=== PATIENT | male | born 1960 | race Caucasian/White ===

== ENCOUNTER 2020-11-22 23:04 | Emergency (ER) | payer OTHER ==
[2020-11-22 23:19] VITALS: BP 145/91
--- NOTE | 2020-11-23 00:01 | ED Physician Documentation ---
History of Present Illness - Stated complaint Stated Complaint: L LEG SWELLING - Chief complaint Chief Complaint: General - History obtained from History obtained from: Patient - History of Present Illness Timing: Today - Additonal information Additional information: 60-year-old previously well male with a history of type 2 diabetes has had his left hip total arthroplasty done at [facility] 1 week ago. Today he was on the commode when he noticed that his left leg was swollen in general and when he called the nurse hotline they asked him to come to the emergency department for further evaluation. The patient denies any specific symptomatology states that he feels quite well and has been up and around doing quite a bit with his walker and expects to see the physical therapist for the first time tomorrow. He denies any shortness of breath or chest pain associated with this denies any significant pain to his leg associated with this. Review of Systems Constitutional: denies: Fever Eyes: denies: Decreased vision Ears: denies: Ear pain Nose: denies: Rhinorrhea / runny nose, Congestion Throat: denies: Sore throat Cardiac: denies: Chest pain / pressure, Palpitations Respiratory: denies: Dyspnea, Cough GI: denies: Abdominal Pain, Nausea, Vomiting : denies: Dysuria, Frequency Skin: denies: Rash Musculoskeletal: reports: Extremity swelling. denies: Neck pain, Back pain, Extremity pain, Joint swelling, Pain with weight bearing Neurologic: denies: Generalized weakness, Focal weakness, Numbness PD PAST MEDICAL HISTORY - Past Medical History Past Medical History: Yes Musculoskeletal: Osteoarthritis - Past Surgical History Ortho: Hip replacement - Present Medications Home Medications: Ambulatory Orders Medication Instructions Recorded Confirmed Acetaminophen [Tylenol] 1,000 mg PO TID 11/22/20 11/22/20 Aspirin [Aspirin EC] 81 mg PO DAILY 11/22/20 11/22/20 Celecoxib [CeleBREX] 100 mg PO BID 11/22/20 11/22/20 Pantoprazole [Protonix] 11/22/20 oxyCODONE [Roxicodone] 5 mg PO QID 11/22/20 11/22/20 - Allergies Allergies/Adverse Reactions: Allergies Allergy/AdvReac Type Severity Reaction Status Date / Time No Known Drug Allergies Allergy Verified 11/22/20 23:29 - Social History Does the pt smoke?: No Smoking Status: Never smoker Does the pt drink ETOH?: No Does the pt have substance abuse?: No PD ED PE NORMAL - Vitals Vital signs reviewed: Yes (hypertensive ) - General General: Alert and oriented X 3, No acute distress, Well developed/nourished - HEENT HEENT: Atraumatic, PERRL, EOMI - Neck Neck: Supple, no meningeal sign, No bony TTP - Cardiac Cardiac: RRR, No murmur - Respiratory Respiratory: No respiratory distress, Clear bilaterally - Abdomen Abdomen: Normal bowel sounds, Soft, Non tender, Non distended, No organomegaly - Back Back: No CVA TTP, No spinal TTP - Derm Derm: Normal color, Warm and dry, No rash - Extremities Extremities: No deformity, Other (There is swelling to the left leg in general. There is swelling from the foot to the hip and there is no evidence of inflamation to the surgical site. 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, No motor deficit, No sensory deficit, Normal speech Eye Opening: Spontaneous Motor: Obeys Commands Verbal: Oriented GCS Score: 15 - Psych Psych: Normal mood, Normal affect Results - Vitals Vitals: Vital Signs - 24 hr 11/22/20 11/22/20 23:14 23:40 Temperature 36.2 C L Heart Rate 93 93 Respiratory 19 19 Rate Blood Pressure 145/91 H 145/91 H O2 Saturation 97 97 Oxygen O2 Source Room air - Rads (name of study) venous duplex L Radiology: Prelim report reviewed (Impression: No deep vein thrombosis.), EMP read indepedently, See rad report PD MEDICAL DECISION MAKING - ED course Complexity details: reviewed old records, reviewed results, re-evaluated patie nt, considered differential, d/w patient ED course: 60 y/o male with recent total hip and swelling to the LLE does not have DVT on ultrasound exam of the LE. He has some dependant edema and he is not wearing his compression stockings. We will encourage him to wear the compression stockings and continue with the planned physical therapy. Departure - Departure Disposition: 01 Home, Self Care Clinical Impression: Dependent edema Condition: Stable Instructions: ED Leg Swelling Unilateral Follow-Up: Your, doctor [Other] Comments: Today we did not find any evidence of a deep vein thrombosis in the left lower extremity. The swelling is likely related to dependent edema and the recent surgery to the left leg. The recommendation is to wear your compression stocking during the day and to continue physical activity. Discharge Date/Time: 11/23/20 01:21
--- NOTE | 2020-11-23 08:41 | Ultrasound Report ---
PROCEDURE: Duplex Ext Veins Left INDICATIONS: post op swelling TECHNIQUE: Real-time imaging, as well as color and pulse Doppler interrogation, were performed of the lower extr emity deep veins from the inguinal ligament to the popliteal fossa. COMPARISON: None. FINDINGS: The deep veins are normally compressible, and free of intraluminal thrombus. Color and pu lse Doppler demonstrate normal phasic intraluminal flow. There is normal augmentation response to di stal compression maneuver. IMPRESSION: No deep venous thrombosis. Reviewed by: Lissette Agrawal MD on 11/23/2020 8:40 AM [facility] Approved by: Lissette Agrawal MD on 11/23/2020 8:40 AM PST Station ID: [id number]
== END 2020-11-23 01:21 | disposition home or self-care (01) ==
LOC: ED 23:04
DX: R60.0 Localized edema (principal); Z98.890 Other specified postprocedural states; Z96.642 Presence of left artificial hip joint; E11.9 Type 2 diabetes mellitus without complications; Z79.82 Long term (current) use of aspirin
CPT/HCPCS: 99284

== ENCOUNTER 2021-02-23 20:54 | Emergency (ER) | payer OTHER ==
--- NOTE | 2021-02-23 21:32 | ED Physician Documentation ---
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 Feels like it got stuck midline mid/lower chest. He initially couldn't tolerate any PO including liquids, but gradually has been able to tolerate increasing amounts of liquids as long as he doesn't drink too much at once. He denies having any pain at any time. He has had similar symptom in the past but never had to have this evaluated, as the sensation would pass on its own (has never lasted this long) Review of Systems Respiratory: reports: Reviewed and negative GI: reports: Reviewed and negative PD PAST MEDICAL HISTORY - Past Medical History Past Medical History: Yes Cardiovascular: Hypertension, High cholesterol Endocrine/Autoimmune: Type 2 diabetes Musculoskeletal: Osteoarthritis - Past Surgical History Past Surgical History: Yes Ortho: Hip replacement - Present Medications Home Medications: Ambulatory Orders Medication Instructions Recorded Confirmed Insulin NPH Human [Humulin N] 16 - 36 unit BID 02/23/21 02/23/21 Lisinopril [Zestril] 20 mg PO DAILY 02/23/21 02/23/21 Rosuvastatin Calcium [Ezallor 10 mg PO DAILY 02/23/21 02/23/21 Sprinkle] metFORMIN [Glucophage] 1,000 mg PO BID 02/23/21 02/23/21 - Allergies Allergies/Adverse Reactions: Allergies Allergy/AdvReac Type Severity Reaction Status Date / Time No Known Drug Allergies Allergy Verified 11/22/20 23:29 - Social History Does the pt smoke?: No Smoking Status: Never smoker Does the pt drink ETOH?: No Does the pt have substance abuse?: No - Immunizations Immunizations are current?: Yes PD ED PE NORMAL - Vitals Vital signs reviewed: Yes - General General: Alert and oriented X 3, No acute distress, Well developed/nourished - Neck Neck: Supple, no meningeal sign - Cardiac Cardiac: RRR, No murmur - Respiratory Respiratory: No respiratory distress, Clear bilaterally - Abdomen Abdomen: Soft, Non tender Results - Vitals Vitals: Vital Signs - 24 hr 02/23/21 02/23/21 02/23/21 20:58 21:12 22:23 Temperature 36.1 C L 36.1 C L 36.1 C L Heart Rate 76 76 72 Respiratory 18 19 18 Rate Blood Pressure 150/77 H 150/77 H 144/71 H O2 Saturation 99 99 99 Oxygen O2 Source Room air PD MEDICAL DECISION MAKING - ED course Complexity details: considered differential, d/w patient ED course: patient presents with sensation of food bolus stuck in esophagus; was eating chicken and shortly after swallowing a piece, he felt as though it became stuck mid/lower midline chest. I offered option of IV glucagon, explaining why this is used for this situation. He says he already has been feeling much improved and instead would like to try drinking liquids. He was able to tolerate the PO liquids and prefers to be discharged at this time, will return if worse, follow up with PMD if symptoms have not completely resolved by Thursday. Departure - Departure Disposition: 01 Home, Self Care Clinical Impression: Foreign body in esophagus Condition: Good Instructions: ED Foreign Body Esophageal Rslv Follow-Up: LOC NIEVES PA [Primary Care Provider] - Discharge Date/Time: 02/23/21 22:23
[2021-02-23 22:24] VITALS: BP 144/71
== END 2021-02-23 22:23 | disposition home or self-care (01) ==
LOC: ED 20:54 → SUPCPDRO 20:54 → ED 22:23
DX: T18.128A Food in esophagus causing other injury, initial encounter (principal); X58.XXXA Exposure to other specified factors, initial encounter; I10 Essential (primary) hypertension; E11.9 Type 2 diabetes mellitus without complications; Z79.4 Long term (current) use of insulin
CPT/HCPCS: 99281; 99283

== ENCOUNTER 2021-03-28 14:09 | Outpatient (CLI) | payer OTHER ==
[2021-03-28 20:29] LABS: ALBUMIN 4.6 g/dL (3.2-5.5); ALBUMIN/GLOBULIN RATIO 1.8 (1.0-2.2); BILIRUBIN,TOTAL 1.8 mg/dL (0.2-1.0); CALCIUM 9.2 mg/dL (8.5-10.3); CREATININE 0.9 mg/dL (0.6-1.2); POTASSIUM 4.5 mmol/L (3.5-5.0); TOTAL PROTEIN 7.1 g/dL (6.7-8.2)
[2021-03-28 20:42] LABS: ESTIMATED AVERAGE GLUCOSE 177 mg/dL (70-100); HEMOGLOBIN A1c% 7.8 % (4.27-6.07)
[2021-03-28 20:53] LABS: CREATININE,URINE 78.4 mg/dL; MICROALBUM/CREATININE RATIO,UR 8.9 ug/mg (<30.0); MICROALBUMIN,URINE 0.7 mg/dL (0-300.0)
== END 2021-03-28 14:10 | disposition home or self-care (01) ==
LOC: LAB.S 14:09
PROVIDERS: ATTEND Physician Assistant
DX: E11.9 Type 2 diabetes mellitus without complications (principal)
CPT/HCPCS: 36415; 80053; 82043; 82570; 83036

== ENCOUNTER 2021-04-23 16:12 | Outpatient (CLI) | payer OTHER ==
[2021-04-23 20:03] LABS: BASOPHILS % (AUTO) 0.6 %; EOSINOPHILS # (AUTO) 0.2 10^3/uL (0.0-0.7); EOSINOPHILS % (AUTO) 2.4 %; HCT - HEMATOCRIT 44.4 % (42.0-52.0); HGB - HEMOGLOBIN 14.8 g/dL (14.0-18.0); LYMPHOCYTES # (AUTO) 1.5 10^3/uL (1.5-3.5); LYMPHOCYTES % (AUTO) 23.1 %; MEAN CORPUSCULAR HEMOGLOBIN 30.7 pg (27.0-31.0); MEAN CORPUSCULAR HGB CONC 33.3 g/dL (32.0-36.0); MEAN CORPUSCULAR VOLUME 92.1 fL (80.0-94.0); MEAN PLATELET VOLUME 10.8 fL (7.4-11.4); MONOCYTES # (AUTO) 0.5 10^3/uL (0.0-1.0); MONOCYTES % (AUTO) 7.7 %; NEUTROPHILS # (AUTO) 4.2 10^3/uL (1.5-6.6); NEUTROPHILS % (AUTO) 65.9 %; PLT - PLATELET COUNT 251 10^3/uL (130-450); RED BLOOD COUNT 4.82 10^6/uL (4.70-6.10); RED CELL DISTRIBUTION WIDTH 14.5 % (12.0-15.0); WHITE BLOOD COUNT 6.4 x10^3/uL (4.8-10.8)
[2021-04-23 20:29] LABS: ALBUMIN 4.4 g/dL (3.2-5.5); ALBUMIN/GLOBULIN RATIO 1.8 (1.0-2.2); BILIRUBIN,TOTAL 1.6 mg/dL (0.2-1.0); CALCIUM 9.1 mg/dL (8.5-10.3); POTASSIUM 4.2 mmol/L (3.5-5.0); TOTAL PROTEIN 6.9 g/dL (6.7-8.2)
== END 2021-04-23 16:13 | disposition home or self-care (01) ==
LOC: LAB.S 16:12
PROVIDERS: ATTEND Physician Assistant
DX: D50.9 Iron deficiency anemia, unspecified (principal); E11.9 Type 2 diabetes mellitus without complications; C18.9 Malignant neoplasm of colon, unspecified
CPT/HCPCS: 36415; 80053; 82378; 82728; 83036; 83540; 84466; 85025

== ENCOUNTER 2021-12-09 10:48 | Outpatient (CLI) | payer OTHER ==
[2021-12-09] MEDS ORDERED: IOVERSOL 320 50 ML VIAL ONE (11:04)
[2021-12-09] MEDS ORDERED: IOVERSOL 320 100 ML VIAL IVP ONE (11:04)
[2021-12-09 11:12] LABS: BASOPHILS % (AUTO) 0.5 %; EOSINOPHILS # (AUTO) 0.2 10^3/uL (0.0-0.7); EOSINOPHILS % (AUTO) 2.9 %; HCT - HEMATOCRIT 46.5 % (42.0-52.0); HGB - HEMOGLOBIN 15.5 g/dL (14.0-18.0); LYMPHOCYTES # (AUTO) 1.1 10^3/uL (1.5-3.5); LYMPHOCYTES % (AUTO) 17.8 %; MEAN CORPUSCULAR HEMOGLOBIN 29.9 pg (27.0-31.0); MEAN CORPUSCULAR HGB CONC 33.3 g/dL (32.0-36.0); MEAN CORPUSCULAR VOLUME 89.8 fL (80.0-94.0); MEAN PLATELET VOLUME 9.6 fL (7.4-11.4); MONOCYTES # (AUTO) 0.4 10^3/uL (0.0-1.0); MONOCYTES % (AUTO) 6.5 %; NEUTROPHILS # (AUTO) 4.5 10^3/uL (1.5-6.6); PLT - PLATELET COUNT 246 10^3/uL (130-450); RED BLOOD COUNT 5.18 10^6/uL (4.70-6.10); RED CELL DISTRIBUTION WIDTH 14.8 % (12.0-15.0); WHITE BLOOD COUNT 6.2 x10^3/uL (4.8-10.8)
[2021-12-09 11:29] LABS: ALBUMIN 4.2 g/dL (3.2-5.5); ALBUMIN/GLOBULIN RATIO 1.4 (1.0-2.2); BILIRUBIN,TOTAL 1.2 mg/dL (0.2-1.0); CALCIUM 9.7 mg/dL (8.5-10.3); CREATININE 0.9 mg/dL (0.6-1.2); POTASSIUM 4.4 mmol/L (3.5-5.0); TOTAL PROTEIN 7.1 g/dL (6.7-8.2)
[2021-12-09] MEDS: IOVERSOL 320 100 ML VIAL IVP ONE (12:16)
[2021-12-09] MEDS: IOVERSOL 320 50 ML VIAL PO ONE (12:16)
--- NOTE | 2021-12-09 15:54 | CT Report ---
PROCEDURE: Abdomen/Pelvis W INDICATIONS: COLON CA CONTRAST: IV CONTRAST: Optiray 320 ml: 100 PO CONTRAST: Optiray 320 ml50 TECHNIQUE: After the administration of oral and intravenous contrast, 5 mm thick sections acquired from the diap hragms to the symphysis. 5 mm thick coronal and sagittal reformats were acquired. For radiation dos e reduction, the following was used: automated exposure control, adjustment of mA and/or kV accordin g to patient size. COMPARISON: CT abdomen/pelvis 08/21/2021 FINDINGS: Image quality: Excellent. ABDOMEN: Lung bases: Lung bases are clear. Heart size is normal. Solid organs: Liver and spleen are normal in size and enhancement. Gallbladder is unremarkable. Bi liary system is non dilated. Pancreas enhances normally. No adrenal nodules. Stable scarring at the superior pole of the right kidney. Bilateral simple renal cysts are again seen. No hydronephrosis. Peritoneum and bowel: Postsurgical changes are seen from partial bowel resection with anastomosis in the central abdomen. No signs of bowel obstruction. No recurrent pelvic mass identified. No free flui d or air. Nodes and vessels: No retroperitoneal or mesenteric adenopathy by size criteria. Aorta and inferior vena cava are normal in size. Mild aortic atherosclerotic calcifications. Miscellaneous: No ventral hernias. PELVIS: Genitourinary: Bladder wall thickness is normal. Miscellaneous: No inguinal hernias or adenopathy. Bones: Left hip arthroplasty redemonstrated. Degenerative changes are seen in the included spine aileen t are worst at the L5-S1 level. There is grade 1 anterolisthesis of L4 on L5. No suspicious bony lesi ons. No vertebral body compression fractures. IMPRESSION: 1.Postsurgical changes from partial colectomy with anastomosis in the central abdomen. No recurrent m ass. No signs of bowel obstruction. 2.No CT evidence of metastatic disease in the abdomen or pelvis. Reviewed by: Yamil Andrews MD on 12/09/2021 3:53 PM PDT Approved by: Yamil Andrews MD on 12/09/2021 3:53 PM PDT Station ID: [id number]
--- NOTE | 2021-12-09 15:55 | CT Report ---
PROCEDURE: CHEST W INDICATIONS: COLON CA CONTRAST: IV CONTRAST: Optiray 320 ml: 100 PO CONTRAST: Optiray 320 ml50 TECHNIQUE: After the administration of intravenous contrast, 1 mm axial images were acquired from the pulmonary apices through the posterior costophrenic angles. Axial 5 mm soft tissue kernel reconstructions were performed as well as 8 mm axial MIP and coronal and sagittal 5 mm reformations. For radiation dose reduction, the following was used: automated exposure control, adjustment of mA and/or kV according to patient size. COMPARISON: CT chest 08/21/2021. FINDINGS: Image quality: Excellent. Lungs and pleura: No acute air space opacities. No pleural effusions or pneumothorax. Central and peripheral airways are patent and normal in caliber. Mediastinum: Heart size is normal. No pericardial effusion. Coronary artery calcifications are pre sent. No mediastinal or hilar adenopathy by size criteria. Thoracic aorta and central pulmonary berta elvira are normal in size. Esophagus is normal in caliber. No hiatal hernia. Bones and chest wall: 1.6 cm hypoattenuating nodule again seen in the left anterior chest abutting t he skin surface, again most likely a sebaceous cyst. A healed right-sided rib fractures. No suspiciou s bony lesions. No vertebral body compression fractures. No axillary or supraclavicular adenopathy by size criteria. The thyroid is normal in size. Abdomen: Stable scarring at the superior pole of the right kidney. Please see the dedicated CT of [facility] abdomen and pelvis performed at the same time for detailed intra-abdominal findings. IMPRESSION: No CT evidence of metastatic disease in the chest. Reviewed by: Yamil Andrews MD on 12/09/2021 3:53 PM PDT Approved by: Yamil Andrews MD on 12/09/2021 3:53 PM PDT Station ID: [id number]
== END 2021-12-09 10:49 | disposition home or self-care (01) ==
LOC: LAB 10:48 → DI 10:49
PROVIDERS: ATTEND Internal Medicine
DX: C18.4 Malignant neoplasm of transverse colon (principal); C18.9 Malignant neoplasm of colon, unspecified; Z90.49 Acquired absence of other specified parts of digestive tract; Z98.0 Intestinal bypass and anastomosis status
CPT/HCPCS: 36415; 71260; 74177; 80053; 82378; 82728; 83540; 84466; 85025; Q9967

== ENCOUNTER 2022-01-13 14:08 | Outpatient (CLI) | payer OTHER ==
[2022-01-13 14:53] LABS: GAMMA GLUTAMYL TRANSPEPTIDASE 10 IU/L (8-55)
[2022-01-13 15:03] LABS: CRP - C-REACTIVE PROTEIN < 1.0 mg/dL (0-1.0)
[2022-01-13 20:42] LABS: ESTIMATED AVERAGE GLUCOSE 146 mg/dL (70-100); HEMOGLOBIN A1c% 6.7 % (4.27-6.07)
== END 2022-01-13 14:09 | disposition home or self-care (01) ==
LOC: LAB 14:08
PROVIDERS: ATTEND Naturopath
DX: C18.9 Malignant neoplasm of colon, unspecified (principal); E11.9 Type 2 diabetes mellitus without complications; Z86.39 Personal history of other endocrine, nutritional and metabolic disease; E83.51 Hypocalcemia; R97.20 Elevated prostate specific antigen [PSA]
CPT/HCPCS: 36415; 82306; 82390; 82525; 82977; 83036; 83090; 84153; 84630; 85384; 85651; 86140

== ENCOUNTER 2022-01-14 14:02 | Outpatient (CLI) | payer OTHER ==
[2022-01-15 08:11] LABS: CERULOPLASMIN 18.6 mg/dL (16.0-31.0); VITAMIN D 25-HYDROXY 25.3 ng/mL (30.0-100.0)
== END 2022-01-14 23:59 | disposition home or self-care (01) ==
LOC: LAB 14:02
PROVIDERS: ATTEND Naturopath
DX: C18.9 Malignant neoplasm of colon, unspecified (principal); E11.9 Type 2 diabetes mellitus without complications; Z86.39 Personal history of other endocrine, nutritional and metabolic disease; E83.51 Hypocalcemia; R97.20 Elevated prostate specific antigen [PSA]
CPT/HCPCS: 36415; 82306; 82390; 82525; 83090; 84630; 85384

== ENCOUNTER 2022-01-23 00:53 | Observation (INO) | payer OTHER ==
[2022-01-23 01:20] LABS: BASOPHILS # (AUTO) 0.1 10^3/uL (0.0-0.1); BASOPHILS % (AUTO) 0.5 %; EOSINOPHILS # (AUTO) 0.1 10^3/uL (0.0-0.7); EOSINOPHILS % (AUTO) 1.5 %; HCT - HEMATOCRIT 46.7 % (42.0-52.0); HGB - HEMOGLOBIN 15.9 g/dL (14.0-18.0); LYMPHOCYTES # (AUTO) 1.1 10^3/uL (1.5-3.5); LYMPHOCYTES % (AUTO) 12.1 %; MEAN CORPUSCULAR HEMOGLOBIN 30.7 pg (27.0-31.0); MEAN CORPUSCULAR VOLUME 90.2 fL (80.0-94.0); MEAN PLATELET VOLUME 9.7 fL (7.4-11.4); MONOCYTES # (AUTO) 0.4 10^3/uL (0.0-1.0); MONOCYTES % (AUTO) 4.6 %; NEUTROPHILS # (AUTO) 7.5 10^3/uL (1.5-6.6); NEUTROPHILS % (AUTO) 81.1 %; PLT - PLATELET COUNT 228 10^3/uL (130-450); RED BLOOD COUNT 5.18 10^6/uL (4.70-6.10); RED CELL DISTRIBUTION WIDTH 15.8 % (12.0-15.0); WHITE BLOOD COUNT 9.2 x10^3/uL (4.8-10.8)
[2022-01-23 01:32] LABS: ALBUMIN 4.6 g/dL (3.2-5.5); ALBUMIN/GLOBULIN RATIO 1.7 (1.0-2.2); BILIRUBIN,TOTAL 1.3 mg/dL (0.2-1.0); CALCIUM 9.6 mg/dL (8.5-10.3); CREATININE 1.1 mg/dL (0.6-1.2); POTASSIUM 4.2 mmol/L (3.5-5.0); TOTAL PROTEIN 7.3 g/dL (6.7-8.2)
[2022-01-23] MEDS ORDERED: ONDANSETRON 4 MG/2 ML VIAL IVP STA (01:42)
[2022-01-23] MEDS ORDERED: MORPHINE 2 MG/ML CARPUJECT IVP STA (01:42)
[2022-01-23] MEDS ORDERED: SODIUM CHLORIDE 0.9% 1,000 ML IV STA (01:42)
[2022-01-23] MEDS ORDERED: IOPAMIDOL-300 100 ML VIAL ONE (02:01)
[2022-01-23] MEDS ORDERED: IOPAMIDOL-300 100 ML VIAL IVP ONE (02:47)
[2022-01-23 03:32] LABS: BILIRUBIN,URINE NEGATIVE (NEGATIVE); CLARITY,URINE CLEAR (CLEAR); GLUCOSE, URINE (UA) NEGATIVE (NEGATIVE); KETONES,URINE (UA) 15 mg/dL (NEGATIVE); LEUKOCYTE ESTERASE, URINE NEGATIVE (NEGATIVE); NITRITE,URINE NEGATIVE (NEGATIVE); OCCULT BLOOD,URINE NEGATIVE (NEGATIVE); PH,URINE 5.5 PH (5.0-7.5); PROTEIN,URINE NEGATIVE (NEGATIVE); UROBILINOGEN,URINE 0.2 (NORMAL) E.U./dL (NORMAL)
[2022-01-23] MEDS ORDERED: ONDANSETRON ODT 4 MG TABLET TL PRN (03:57)
[2022-01-23] MEDS ORDERED: SODIUM CHLORIDE FLUSH 0.9% 10 ML SYRINGE IVP PRN (03:57)
[2022-01-23] MEDS ORDERED: ONDANSETRON 4 MG/2 ML VIAL IVP PRN (03:57)
[2022-01-23] MEDS ORDERED: ACETAMINOPHEN 325 MG TABLET PO PRN (03:57)
--- NOTE | 2022-01-23 03:57 | ED Physician Documentation ---
PD HPI ABD PAIN - Stated complaint Stated Complaint: UPPER ABD PX/VOMITING - Chief complaint Chief Complaint: Abd Pain - History obtained from History obtained from: Patient - Additional information Additional information: Patient is a 61-year-old male with a history significant for colon cancer status postresection, diabetes and hypertension presenting for evaluation of upper abdominal pain, vomiting which started at 9 PM. Patient started having sharp epigastric pain with episodes of emesis consisting of food. Emesis is nonbloody and nonbilious. Pain does not radiate. Nothing makes it better or worse. His last abdominal surgery was in September of this year - Colon resection.He denies recent illness. No fever, chest pain, difficulty breathing, diarrhea. He last had a bowel movement this morning. Review of Systems Constitutional: denies: Fever Nose: denies: Congestion Throat: denies: Sore throat Cardiac: denies: Chest pain / pressure Respiratory: denies: Dyspnea, Cough GI: reports: Abdominal Pain, Nausea, Vomiting. denies: Constipation, Diarrhea : denies: Dysuria Skin: denies: Rash Musculoskeletal: denies: Back pain Neurologic: denies: Headache PD PAST MEDICAL HISTORY - Past Medical History Past Medical History: Yes Cardiovascular: Hypertension, High cholesterol Endocrine/Autoimmune: Type 2 diabetes GI: Other Musculoskeletal: Osteoarthritis Other Past Medical History: Colon CA - Past Surgical History Past Surgical History: Yes General: Other Ortho: Hip replacement - Present Medications Home Medications: Ambulatory Orders Medication Instructions Recorded Confirmed Lisinopril [Zestril] 20 mg PO DAILY 02/23/21 01/23/22 Rosuvastatin Calcium [Ezallor 10 mg PO DAILY 02/23/21 01/23/22 Sprinkle] metFORMIN [Glucophage] 1,000 mg PO BID 02/23/21 01/23/22 Fluconazole 150 mg PO UD 06/26/21 01/23/22 Insulin Degludec [Tresiba] 18 unit SUBQ DAILY PM 06/26/21 01/23/22 Insulin Lispro [Humalog] 8 unit SUBQ TID 11/06/21 01/23/22 - Allergies Allergies/Adverse Reactions: Allergies Allergy/AdvReac Type Severity Reaction Status Date / Time No Known Drug Allergies Allergy Verified 01/23/22 01:01 - Social History Does the pt smoke?: No Smoking Status: Never smoker Does the pt drink ETOH?: No Does the pt have substance abuse?: No - Immunizations Immunizations are current?: Yes - POLST Patient has POLST: No PD ED PE NORMAL - General General: Alert and oriented X 3, No acute distress, Well developed/nourished - HEENT HEENT: Atraumatic, Moist mucous membranes - Neck Neck: Supple, no meningeal sign - Cardiac Cardiac: RRR, No murmur, Strong equal pulses - Respiratory Respiratory: No respiratory distress, Clear bilaterally - Abdomen Abdomen: Soft, Non distended, Other (Epigastric tenderness, no rebound no guarding, hypoactive bowel sounds). No: Normal bowel sounds - Back Back: No CVA TTP - Derm Derm: Warm and dry - Extremities Extremities: No edema - Neuro Neuro: Normal speech - Psych Psych: Normal mood Results - Vitals Vitals: Vital Signs - 24 hr 01/23/22 01/23/22 01/23/22 00:58 01:27 02:09 Temperature 36.6 C Heart Rate 76 93 63 Respiratory 16 20 17 Rate Blood Pressure 146/88 H 166/78 H 162/87 H O2 Saturation 97 98 99 01/23/22 01/23/22 03:16 03:43 Temperature Heart Rate 66 66 Respiratory 15 16 Rate Blood Pressure 157/76 H 156/77 H O2 Saturation 96 97 Oxygen O2 Source Room air - EKG (time done) 0112 Rate: Rate (enter#) (69) Rhythm: NSR Ischemia: T wave inversion. No: ST elevation c/w ischemia - Labs Labs: Laboratory Tests 01/23/22 01/23/22 01/23/22 01:15 01:15 01:15 WBC 9.2 RBC 5.18 Hgb 15.9 Hct 46.7 MCV 90.2 MCH 30.7 MCHC 34.0 RDW 15.8 H Plt Count 228 MPV 9.7 Neut # (Auto) 7.5 H Lymph # (Auto) 1.1 L [place] # (Auto) 0.4 Eos # (Auto) 0.1 Baso # (Auto) 0.1 Absolute Nucleated RBC 0.00 Nucleated RBC % 0.0 Sodium 134 L Potassium 4.2 Chloride 97 L Carbon Dioxide 27 Anion Gap 10.0 BUN 19 Creatinine 1.1 Estimated GFR (MDRD) 68 L Glucose 151 H Calcium 9.6 Total Bilirubin 1.3 H AST 23 ALT 28 Alkaline Phosphatase 74 Troponin I High Sens 6.8 Total Protein 7.3 Albumin 4.6 Globulin 2.7 Albumin/Globulin Ratio 1.7 Lipase 30 Urine Color Urine Clarity Urine pH Ur Specific Bul[place] Urine Protein Urine Glucose (UA) Urine Ketones Urine Occult Blood Urine Nitrite Urine Bilirubin Urine Urobilinogen Ur Leukocyte Esterase Ur Microscopic Review Urine Culture Comments SARS-CoV-2 (PCR) 01/23/22 01/23/22 03:25 03:55 WBC RBC Hgb Hct MCV MCH MCHC RDW Plt Count MPV Neut # (Auto) Lymph # (Auto) [place] # (Auto) Eos # (Auto) Baso # (Auto) Absolute Nucleated RBC Nucleated RBC % Sodium Potassium Chloride Carbon Dioxide Anion Gap BUN Creatinine Estimated GFR (MDRD) Glucose Calcium Total Bilirubin AST ALT Alkaline Phosphatase Troponin I High Sens Total Protein Albumin Globulin Albumin/Globulin Ratio Lipase Urine Color YELLOW Urine Clarity CLEAR Urine pH 5.5 Ur Specific [place] 1.020 Urine Protein NEGATIVE Urine Glucose (UA) NEGATIVE Urine Ketones 15 H Urine Occult Blood NEGATIVE Urine Nitrite NEGATIVE Urine Bilirubin NEGATIVE Urine Urobilinogen 0.2 (NORMAL) Ur Leukocyte Esterase NEGATIVE Ur Microscopic Review NOT INDICATED Urine Culture Comments NOT INDICATED SARS-CoV-2 (PCR) NOT DETECTED PD MEDICAL DECISION MAKING - ED course Complexity details: reviewed results, d/w patient, d/w family ED course: Patient with upper abdominal pain, vomiting. Vitals and labs are reassuring. CT scan demonstrating small bowel obstruction. Nausea and vomiting has improved after Zofran. Will hold on NG tube at this time. General surgery consulted and patient to be admitted to the hospitalist service. 034 - D/W Dr. Jackson, Will consult 0650 - D/W Dr. Cohen, will see pt. Departure - Departure Disposition: ED Place in Observation Clinical Impression: Small bowel obstruction Condition: Stable Discharge Date/Time: 01/23/22 04:50
[2022-01-23] MEDS: INSULIN REGULAR HUMAN 300 UNIT/3 ML VIAL SUBQ SCH ×3 (05:22→18:43)
[2022-01-23] MEDS: MORPHINE 2 MG/ML CARPUJECT IVP PRN ×3 (05:28→15:36)
[2022-01-23] MEDS: LACTATED RINGERS 1,000 ML IV SCH ×2 (05:35→15:36)
--- NOTE | 2022-01-23 07:34 | HISTORY & PHYSICAL EXAMINATION ---
Chief Complaint - Chief Complaint Chief Complaint: Abdominal pain History of Present Illness - Admitted From Admitted From:: Home - History Obtained From Records Reviewed: [facility] History obtained from: Patient, [employer], EMR - History of Present Illness HPI Comment/Other: This is a 61-year-old male with a past medical history significant for insulin- dependent diabetes mellitus, colon cancer status postresection who presents complaining of abdominal pain. He states his symptoms began yesterday evening at around 7 PM when he felt nauseous and had episode of emesis after eating carrots and some nuts. His pain then returned a few hours later and he had another episode of emesis and so he came to the emergency department. He states he was feeling well earlier on in the day and tolerated his meals without difficulty. He has not had similar symptoms in the past. He does report a history of colon cancer which was first diagnosed in August 2019. He underwent a resection at that time and he did not require chemotherapy or radiation. He reports that he had a colonoscopy a few months ago which showed recurrence of the cancer and so he underwent another resection at [facility] in October of this year. He reports he has done well since then. He denies any fevers, chills. The pain is predominantly epigastric region and is nonradiating. It was initially an 8 out of 10 but is now about a 5 out of 10 after receiving morphine. He no longer feels nauseous. His last bowel movement was yesterday morning. He has not had flatus since admission. CT in the emergency department was consistent with a bowel obstruction. Given this, medicine was consulted for admission. History - Past Medical History Cardiovascular: reports: Hypertension, High cholesterol Endocrine/Autoimmune: reports: Type 2 diabetes GI: reports: Other (Colon cancer status post right hemicolectomy) Musculoskeletal: reports: Osteoarthritis MRSA Hx?: No Other Past Medical History: Colon CA - Past Surgical History General: reports: Bowel surgery (Right hemicolectomy), Colonoscopy Ortho: reports: Hip replacement - Family & Social History Family History Comment/Other: He reports his father had a history of heart disease, prostate cancer. His mother has a history of breast cancer. Living arrangement: At home Living Situation: With spouse/s.o. Social History Notes: He lives at home with his . He is a non-smoker. He does drink 3 to 4 glasses of wine a week. - POLST Patient has POLST: No Meds/Allgy - Home Medications Home Medications: Ambulatory Orders Medication Instructions Recorded Confirmed Lisinopril [Zestril] 20 mg PO DAILY 02/23/21 01/23/22 Rosuvastatin Calcium [Ezallor 10 mg PO DAILY 02/23/21 01/23/22 Sprinkle] metFORMIN [Glucophage] 1,000 mg PO BID 02/23/21 01/23/22 Fluconazole 150 mg PO UD 06/26/21 01/23/22 Insulin Degludec [Tresiba] 18 unit SUBQ DAILY PM 06/26/21 01/23/22 Insulin Lispro [Humalog] 8 unit SUBQ TID 11/06/21 01/23/22 - Allergies Allergies/Adverse Reactions: Allergies Allergy/AdvReac Type Severity Reaction Status Date / Time No Known Drug Allergies Allergy Verified 01/23/22 01:01 Review of Systems - Constitutional Constitutional: denies: Fatigue, Fever, Chills, Poor appetite - Cardiovascular Cariovascular: denies: Chest pain, Edema, Lightheadedness, Exertional dyspnea, Decr. exercise tolerance - Respiratory Respiratory: denies: Cough, SOB at rest, SOB with exertion - Gastrointestinal Gastrointestinal: reports: Abdominal pain, Nausea, Vomiting. denies: Rahat blo od emesis, Coffee grounds emesis - Genitourinary Genitourinary: denies: Dysuria, Frequency, Hematuria - Neurological Neurological: denies: General weakness, Focal weakness, Dizziness - Hematologic/Lymphatic Hematologic/Lymphatic: denies: Bleeding tendencies - All Other Systems All Other Systems: reports: Reviewed and negative Prior Level of Functionality: He is independent with his ADLs. Exam - Vital Signs Reviewed Vital Signs: Yes Vital Signs: Vital Signs x48h Temp Pulse Pulse Resp BP BP Pulse Ox 01/23/22 05:39 36.7 C 77 15 160/87 H 100 01/23/22 04:27 37.0 C 69 15 147/76 H 98 01/23/22 03:43 66 16 156/77 H 97 01/23/22 03:16 66 15 157/76 H 96 01/23/22 02:09 63 17 162/87 H 99 01/23/22 01:27 93 20 166/78 H 98 01/23/22 00:58 36.6 C 76 16 146/88 H 97 - Physical Exam General Appearance: positive: No acute distress, Alert Eyes Bilateral: positive: Normal inspection, Conjunctivae nml ENT: positive: ENT inspection nml Neck: positive: Nml inspection Respiratory: positive: No respiratory distress. negative: Wheezes, Rales Cardiovascular: positive: Regular rate & rhythm, No murmur. negative: Tachycardia Abdomen: positive: Tenderness (Epigastric tenderness), Abnml bowel sounds (Hypoactive). negative: Non-tender, Guarding, Rebound Skin: positive: Warm, Dry Extremities: positive: No pedal edema Neurologic/Psychiatric: positive: Motor nml. negative: Disoriented to person, Disoriented to place, Disoriented to time Conclusion/Plan - Problem List (1) Small bowel obstruction Conclusion/Plan: CT is consistent with bowel obstruction which we suspect is likely due to ad hesions given his history of surgical interventions. We will place in observation and consult general surgery. We will place NG tube if he has further episodes of emesis. N.p.o. at this time. IV hydration with lactated Ringer's. Morphine for pain and Zofran for nausea. We will consider a Gastr ografin challenge if no improvement in his symptoms this morning. Appreciate general surgery input. (2) History of colon cancer Conclusion/Plan: He has a history of colon cancer status postresection. Most recent surgical intervention was in October of this year at [facility]. We will manage his bowel obstruction as mentioned above. He will continue outpatient follow-up with oncology. (3) Insulin dependent diabetes mellitus Conclusion/Plan: His blood glucose is currently well controlled. We will hold his home insulin at this time given he is n.p.o. We will monitor his blood glucose every 6 hours. (4) Hypertension Conclusion/Plan: He is currently hypertensive with blood pressures in the 140s to 160s. He is on lisinopril at home. We will start him on IV enalaprilat if he remains hypertensive. - Lab Results Lab results reviewed: Yes Fish Bones: 01/23/22 01:15 01/23/22 01:15 - Diagnostic Imaging Results Diagnostic Imaging Results: positive: Prelim report reviewed, Final report reviewed Core Measures - Anticipated LOS I expect patient to be DC'd or transferred within 96 hours.: Yes - Issues Hospital Issues and Management Plan: 61-year-old male with history of colon cancer status post right hemicolectomy presents with abdominal pain found of a bowel obstruction. Will place in observation for conservative management and consult general surgery. - DVT/VTE - Prophylaxis VTE/DVT Device ordered at admit?: No VTE/DVT Prophylaxis med ordered at admit?: Yes
--- NOTE | 2022-01-23 07:45 | CT Report ---
PROCEDURE: Abdomen/Pelvis W INDICATIONS: h/o colon resection/ upper abd pain and vomiting CONTRAST: IV CONTRAST: Isovue 300 ml: 100 PO CONTRAST: *NO PO CONTRAST TECHNIQUE: After the administration of intravenous contrast, 5 mm thick sections acquired from the diaphragms to the symphysis. 5 mm thick coronal and sagittal reformats were acquired. For radiation dose reducti on, the following was used: automated exposure control, adjustment of mA and/or kV according to diana ent size. COMPARISON: 12/09/2021 FINDINGS: Image quality: Excellent. ABDOMEN: Lung bases: Lung bases are clear. Heart size is normal. Solid organs: Liver and spleen are normal in size and enhancement. Gallbladder is unremarkable Sesar iary system is non dilated. Pancreas enhances normally. No adrenal nodules. Kidneys demonstrate no rmal size and enhancement, without hydronephrosis. Peritoneum and bowel: Remote right hemicolectomy. There is a small bowel obstruction present. Small b owel loops are dilated to approximately 3.7 cm. The obstruction loops do not have any wall thickening or air within their rose. No free fluid or air. Nodes and vessels: No retroperitoneal or mesenteric adenopathy by size criteria. Aorta and inferior vena cava are normal in size. Miscellaneous: No ventral hernias. PELVIS: Genitourinary: Bladder wall thickness is normal. Miscellaneous: No inguinal hernias or adenopathy. Bones: No suspicious bony lesions. No vertebral body compression fractures. Total left hip arthrop lasty with resultant metallic artifact. Lumbar degenerative change. Severe canal stenosis at L4-L5. IMPRESSION: 1. Remote right hemicolectomy. 2. Small bowel obstruction. 3. Note is made of lumbar degenerative change with severe canal stenosis at L4-L5. Findings are concordant with preliminary interpretation provided by [facility]. Reviewed by: Shiraz Morgan MD on 01/23/2022 7:43 AM PDT Approved by: Shiraz Morgan MD on 01/23/2022 7:43 AM PDT Station ID: [id number]
[2022-01-23] MEDS: ENOXAPARIN 40 MG/0.4 ML SYRINGE SUBQ SCH (09:26)
[2022-01-23] MEDS: SODIUM CHLORIDE FLUSH 0.9% 10 ML SYRINGE IVP SCH ×3 (09:26→23:25)
[2022-01-23 09:34] LABS: BASOPHILS % (AUTO) 0.4 %; EOSINOPHILS # (AUTO) 0.1 10^3/uL (0.0-0.7); EOSINOPHILS % (AUTO) 1.2 %; HCT - HEMATOCRIT 43.6 % (42.0-52.0); HGB - HEMOGLOBIN 14.9 g/dL (14.0-18.0); LYMPHOCYTES # (AUTO) 1.1 10^3/uL (1.5-3.5); LYMPHOCYTES % (AUTO) 13.8 %; MEAN CORPUSCULAR HEMOGLOBIN 30.4 pg (27.0-31.0); MEAN CORPUSCULAR HGB CONC 34.2 g/dL (32.0-36.0); MEAN PLATELET VOLUME 9.8 fL (7.4-11.4); MONOCYTES # (AUTO) 0.5 10^3/uL (0.0-1.0); MONOCYTES % (AUTO) 5.9 %; NEUTROPHILS % (AUTO) 78.6 %; PLT - PLATELET COUNT 215 10^3/uL (130-450); RED CELL DISTRIBUTION WIDTH 15.9 % (12.0-15.0); WHITE BLOOD COUNT 7.7 x10^3/uL (4.8-10.8)
[2022-01-23 09:43] LABS: CALCIUM 9.1 mg/dL (8.5-10.3); CREATININE 0.9 mg/dL (0.6-1.2); POTASSIUM 3.9 mmol/L (3.5-5.0)
--- NOTE | 2022-01-23 11:26 | PHARMACY PROGRESS NOTE ---
- Best Possible Medication History Admit Date and Time: 01/23/22 0357 Processed by: Nursing Patient Interview: Completed Secondary Source(s): Pharmacy records, Insurance records As the person ultimately responsible for medication therapy, providers are able to order a medication from an existing home medication list in [facility] via the "Reconcile Routine" prior to Confirmation of that medication by dealer support technician. Such practice is discouraged except when the physician, in their clinical judgment, deems that a medical need exists for a medication without regard to previous use.
--- NOTE | 2022-01-23 13:35 | CONSULTATION NOTE ---
Referring Provider Consult Date: 01/23/22 Chief Complaint - Chief Complaint Chief Complaint: abdominal pain History of Present Illness - History Obtained From Records Reviewed: yes History obtained from: pt Exam Limitations: none - History of Present Illness HPI Comment/Other: History of right colon cancer and open colectomy 2018 and recurrence anastomosis. Open resection recurrence oct 2021. He did not need chemotherapy. Both surgeries at [facility]. After eating alot of carrots and nuts he develped abdominal pain yesterday. No nausea at this time History - Past Medical History Cardiovascular: reports: Hypertension, High cholesterol Endocrine/Autoimmune: reports: Type 2 diabetes GI: reports: Other (Colon cancer status post right hemicolectomy) Musculoskeletal: reports: Osteoarthritis MRSA Hx?: No Other Past Medical History: Colon CA - Past Surgical History General: reports: Bowel surgery (Right hemicolectomy), Colonoscopy Ortho: reports: Hip replacement - Family & Social History Family History Comment/Other: He reports his father had a history of heart disease, prostate cancer. His mother has a history of breast cancer. Living arrangement: At home Living Situation: With spouse/s.o. Social History Notes: He lives at home with his . He is a non-smoker. He does drink 3 to 4 glasses of wine a week. - POLST Patient has POLST: No Meds/Allgy - Home Medications Home Medications: Ambulatory Orders Medication Instructions Recorded Confirmed Lisinopril [Zestril] 20 mg PO DAILY 02/23/21 01/23/22 Rosuvastatin Calcium [Ezallor 10 mg PO QPM 02/23/21 01/23/22 Sprinkle] metFORMIN [Glucophage] 1,000 mg PO BID 02/23/21 01/23/22 Fluconazole 150 mg PO Q7D 06/26/21 01/23/22 Insulin Degludec [Tresiba] 18 unit SUBQ DAILY 06/26/21 01/23/22 Insulin Lispro [Humalog] 4 unit SUBQ TIDWM PRN 11/06/21 01/23/22 B-Complex with Vitamin C [Vitamin 1 each PO DAILY 01/23/22 01/23/22 B-Complex with Vit C] Cholecalciferol (Vitamin D3) 125 mcg PO DAILY 01/23/22 01/23/22 [Vitamin D3] [place]-3/Dha/Epa/Fish Oil [Fish Oil 1 each PO DAILY 01/23/22 01/23/22 1,000 mg Softgel] Turmeric 400 mg PO DAILY 01/23/22 01/23/22 Ubidecarenone [Co Q-10] 300 mg PO DAILY 01/23/22 01/23/22 Zinc Gluconate [Zinc] 50 mg PO DAILY 01/23/22 01/23/22 - Allergies Allergies/Adverse Reactions: Allergies Allergy/AdvReac Type Severity Reaction Status Date / Time No Known Drug Allergies Allergy Verified 01/23/22 01:01 Review of Systems - Other Findings Other Findings: 10 pt ros as above otherwise unremarkable Exam - Vital Signs Reviewed Vital Signs: Yes Vital Signs: Vital Signs x48h Temp Pulse Resp BP Pulse Ox 01/23/22 12:14 36.6 C 83 18 162/96 H 100 01/23/22 08:45 36.6 C 73 18 150/84 H 100 01/23/22 05:39 36.7 C 77 15 160/87 H 100 - Physical Exam General Appearance: positive: No acute distress, Alert Eyes Bilateral: positive: PERRL, EOMI, No scleral icterus ENT: positive: No signs of dehydration Neck: positive: No JVD Respiratory: positive: No respiratory distress Abdomen: positive: Other (minimal distension and tenderness. benign abdomen) Neurologic/Psychiatric: positive: Oriented x3 Conclusion/Plan - Problem List (1) Small bowel obstruction Conclusion/Plan: agree with care and plan. he states if he were to need surgery he would like to have it done by his surge on at [facility]. he has already spoken with his surgeon. - Lab Results Lab results reviewed: Yes Fish Bones: 01/23/22 09:28 01/23/22 09:28
[2022-01-23] MEDS: ENALAPRILAT 1.25 MG/ML VIAL IVP SCH (17:59)
[2022-01-24] MEDS: INSULIN REGULAR HUMAN 300 UNIT/3 ML VIAL SUBQ SCH ×3 (00:05→12:50)
[2022-01-24] MEDS: ENALAPRILAT 1.25 MG/ML VIAL IVP SCH ×2 (00:07→06:19)
[2022-01-24] MEDS: LACTATED RINGERS 1,000 ML IV SCH (01:32)
[2022-01-24 06:27] LABS: BASOPHILS % (AUTO) 0.6 %; EOSINOPHILS # (AUTO) 0.2 10^3/uL (0.0-0.7); EOSINOPHILS % (AUTO) 2.4 %; HCT - HEMATOCRIT 40.3 % (42.0-52.0); HGB - HEMOGLOBIN 13.8 g/dL (14.0-18.0); LYMPHOCYTES # (AUTO) 1.4 10^3/uL (1.5-3.5); LYMPHOCYTES % (AUTO) 21.9 %; MEAN CORPUSCULAR HEMOGLOBIN 30.4 pg (27.0-31.0); MEAN CORPUSCULAR HGB CONC 34.2 g/dL (32.0-36.0); MEAN CORPUSCULAR VOLUME 88.8 fL (80.0-94.0); MEAN PLATELET VOLUME 9.6 fL (7.4-11.4); MONOCYTES # (AUTO) 0.6 10^3/uL (0.0-1.0); MONOCYTES % (AUTO) 8.5 %; NEUTROPHILS # (AUTO) 4.4 10^3/uL (1.5-6.6); NEUTROPHILS % (AUTO) 66.4 %; PLT - PLATELET COUNT 201 10^3/uL (130-450); RED BLOOD COUNT 4.54 10^6/uL (4.70-6.10); RED CELL DISTRIBUTION WIDTH 15.9 % (12.0-15.0); WHITE BLOOD COUNT 6.6 x10^3/uL (4.8-10.8)
[2022-01-24 06:38] LABS: CREATININE 0.9 mg/dL (0.6-1.2); POTASSIUM 3.9 mmol/L (3.5-5.0)
[2022-01-24 07:58] VITALS: BP 128/68
[2022-01-24] MEDS: SODIUM CHLORIDE FLUSH 0.9% 10 ML SYRINGE IVP SCH (08:44)
[2022-01-24] MEDS: ENOXAPARIN 40 MG/0.4 ML SYRINGE SUBQ SCH (08:44)
--- NOTE | 2022-01-24 11:07 | Discharge Plan ---
Discharge Plan Problem Reviewed?: Yes Disposition: Home, Self Care Condition: Stable Prescriptions: Ondansetron Odt [Zofran Odt] 4 mg TL Q6H PRN #10 tablet PRN Reason: Nausea / Vomiting Diet: Soft (Diabetic diet) Activity Restrictions: Activity as Tolerated Health Concerns: You were admitted to the hospital because of a small bowel obstruction. This likely occurred due to scar tissue in your abdomen from prior abdominal surgeries. You were managed conservatively with IV fluids, pain control and nausea medication. Fortunately her symptoms have improved and you are now tolerating a diet. We suspect this may have been exacerbated by the nuts and carrots you were eating. Plan of Treatment: There are no changes made to medications. We have prescribed you Zofran to take as needed for nausea. We recommend that you follow-up with your surgeon at [facility]. We recommend advancing your diet over the next few days slowly. A soft diet is recommended for the time being. Please limit the use of raw vegetables, leafy vegetables, and vegetables with small seeds. We also recommend limiting the use of nuts and seeds. We recommend that you chew foods well and to eat smaller amounts of food more often throughout the day. Please drink plenty of fluids (at least 2 L a day). Care Goals: The goal is to prevent future episodes of bowel obstruction. Assessment: The patient expressed understanding of the treatment plan. Additional Instructions or Follow Up instructions: Please follow-up with your surgeon at [facility] within the next 2 weeks. Please be aware that the symptoms can occur again and if you develop abdominal pain with nausea/vomiting then please return to the emergency department. No Smoking: If you smoke, Please STOP! Call for help. Follow-up with: ELADIA HERNANDEZ MD [Physician No Access] -
--- NOTE | 2022-01-24 11:07 | DISCHARGE SUMMARY ---
"Discharge Summary Admit Date: 01/23/22 Discharge Date: 01/24/22 Discharging Provider: Jaydon Baron Primary Care Provider: Latosha Aguilera Code Status: Attempt Resuscitation Condition at Discharge: Stable Discharge Disposition: 01 Home, Self Care - DIAGNOSES Admission Diagnoses: Small bowel obstruction History of colon cancer Independent diabetes mellitus Hypertension Discharge Diagnoses with Status of Each Condition: Small bowel obstruction - resolved. History of colon cancer - stable. Independent diabetes mellitus - stable. Hypertension - stable. - HPI History of Present Illness: This is a 61-year-old male with a past medical history significant for insulin- dependent diabetes mellitus, colon cancer status postresection who presents complaining of abdominal pain. He states his symptoms began yesterday evening at around 7 PM when he felt nauseous and had episode of emesis after eating carrots and some nuts. His pain then returned a few hours later and he had another episode of emesis and so he came to the emergency department. He states he was feeling well earlier on in the day and tolerated his meals without difficulty. He has not had similar symptoms in the past. He does report a history of colon cancer which was first diagnosed in August 2019. He underwent a resection at that time and he did not require chemotherapy or radiation. He reports that he had a colonoscopy a few months ago which showed recurrence of the cancer and so he underwent another resection at [facility] in October of this year. He reports he has done well since then. He denies any fevers, chills. The pain is predominantly epigastric region and is nonradiating. It was initially an 8 out of 10 but is now about a 5 out of 10 after receiving morphine. He no longer feels nauseous. His last bowel movement was yesterday morning. He has not had flatus since admission. CT in the emergency department was consistent with a bowel obstruction. Given this, medicine was consulted for admission. - CONSULTS | PROCEDURES Consultations: General Surgery - HOSPITAL COURSE Hospital Course: He was admitted for a small bowel obstruction. NG tube was not placed as he had improvement in his nausea and no episodes of emesis. His pain was treated with morphine IV and Zofran was used for nausea. General surgery was consulted and recommended conservative management. He had 1 more episode of emesis shortly after admission but his symptoms began to improve later that evening. He then began to have flatus and his abdominal pain resolved. He is started on a clear liquid diet the following morning which he tolerated well. He then had a small bowel movement and so his diet was advanced. He continued to tolerate this well and so he was discharged home in stable condition. He was provided instructions on diet reducing the risk of bowel obstruction in the future. We also discussed that this is likely due to adhesions given his prior abdominal surgeries and that he is at risk of this occurring again. He was encouraged to follow-up with the surgeon at [facility] in 2 weeks. He was provided with Zofran as needed for nausea. - ALLERGIES Allergies/Adverse Reactions: Allergies Allergy/AdvReac Type Severity Reaction Status Date / Time No Known Drug Allergies Allergy Verified 01/23/22 01:01 - MEDICATIONS Home Medications: Ambulatory Orders Medication Instructions Recorded Confirmed Lisinopril [Zestril] 20 mg PO DAILY 02/23/21 01/23/22 Rosuvastatin Calcium [Ezallor 10 mg PO QPM 02/23/21 01/23/22 Sprinkle] metFORMIN [Glucophage] 1,000 mg PO BID 02/23/21 01/23/22 Fluconazole 150 mg PO Q7D 06/26/21 01/23/22 Insulin Degludec [Tresiba] 18 unit SUBQ DAILY 06/26/21 01/23/22 Insulin Lispro [Humalog] 4 unit SUBQ TIDWM PRN 11/06/21 01/23/22 B-Complex with Vitamin C [Vitamin 1 each PO DAILY 01/23/22 01/23/22 B-Complex with Vit C] Cholecalciferol (Vitamin D3) 125 mcg PO DAILY 01/23/22 01/23/22 [Vitamin D3] [place]-3/Dha/Epa/Fish Oil [Fish Oil 1 each PO DAILY 01/23/22 01/23/22 1,000 mg Softgel] Turmeric 400 mg PO DAILY 01/23/22 01/23/22 Ubidecarenone [Co Q-10] 300 mg PO DAILY 01/23/22 01/23/22 Zinc Gluconate [Zinc] 50 mg PO DAILY 01/23/22 01/23/22 Ondansetron Odt [Zofran Odt] 4 mg TL Q6H PRN #10 tablet 01/24/22 - PHYSICAL EXAM AT DISCHARGE General Appearance: positive: No acute distress, Alert Eyes Bilateral: positive: Normal inspection, Conjunctivae nml ENT: positive: ENT inspection nml Neck: positive: Nml inspection Respiratory: positive: No respiratory distress. negative: Wheezes, Rales Cardiovascular: positive: Regular rate & rhythm, No murmur. negative: Tac hycardia Abdomen: positive: Non-tender, Nml bowel sounds, No distention. negative: Tenderness, Guarding, Rebound Skin: positive: Warm, Dry Extremities: positive: Full ROM, No pedal edema Neurologic/Psychiatric: positive: Oriented x3, Motor nml. negative: Disoriented to person, Disoriented to place, Disoriented to time Physical Exam Other/Comments: Vital Signs - 24 hr 01/23/22 01/23/22 01/23/22 12:14 15:40 17:57 Temperature 36.6 C 37.0 C Heart Rate [ 83 71 Brachial] Respiratory 18 16 Rate Blood Pressure 162/96 H 179/85 H 140/82 H [Left Brachial artery] Blood Pressure [Right Brachial artery] O2 Saturation 100 99 01/23/22 01/23/22 01/23/22 18:01 18:06 20:08 Temperature 36.9 C Heart Rate [ 74 69 73 Brachial] Respiratory 16 Rate Blood Pressure 156/70 H 159/76 H 151/66 H [Left Brachial artery] Blood Pressure [Right Brachial artery] O2 Saturation 98 01/24/22 01/24/22 01/24/22 00:05 00:10 00:15 Temperature 36.9 C Heart Rate [ 64 63 67 Brachial] Respiratory 16 Rate Blood Pressure [Left Brachial artery] Blood Pressure 130/62 132/57 H 145/67 H [Right Brachial artery] O2 Saturation 01/24/22 01/24/22 01/24/22 00:20 00:35 00:50 Temperature Heart Rate [ 65 68 57 L Brachial] Respiratory Rate Blood Pressure [Left Brachial artery] Blood Pressure 124/63 123/59 L 125/58 L [Right Brachial artery] O2 Saturation 01/24/22 01/24/22 01/24/22 06:15 06:25 06:30 Temperature Heart Rate [ 71 66 70 Brachial] Respiratory Rate Blood Pressure [Left Brachial artery] Blood Pressure 131/71 H 127/65 125/68 [Right Brachial artery] O2 Saturation 01/24/22 01/24/22 01/24/22 06:35 06:50 07:05 Temperature Heart Rate [ 62 64 63 Brachial] Respiratory Rate Blood Pressure [Left Brachial artery] Blood Pressure 126/68 125/67 121/67 [Right Brachial artery] O2 Saturation 01/24/22 01/24/22 07:57 08:43 Temperature 36.1 C L Heart Rate [ 56 L Brachial] Respiratory Rate Blood Pressure [Left Brachial artery] Blood Pressure 128/68 [Right Brachial artery] O2 Saturation Oxygen O2 Source Room air - LABS Result Diagrams: 01/24/22 06:25 01/24/22 06:25 - DIAGNOSTIC IMAGING Diagnostic Imaging Results: Final report reviewed - FOLLOW UP Follow Up: He was encouraged to follow-up with his general surgeon at [facility] within 2 weeks. - TIME SPENT Time Spent in Discharge (Minutes): 32"
[2022-01-24] MEDS ORDERED: INSULIN ASPART 300 UNIT/3 ML PEN SUBQ ONE (11:25)
== END 2022-01-24 13:13 | disposition home or self-care (01) ==
LOC: ED 00:53 → MS2 03:57
PROVIDERS: ADMIT Internal Medicine; ATTEND Internal Medicine
DX: K56.609 Unspecified intestinal obstruction, unspecified as to partial versus complete obstruction (principal); E11.9 Type 2 diabetes mellitus without complications; I10 Essential (primary) hypertension; Z90.49 Acquired absence of other specified parts of digestive tract; Z79.4 Long term (current) use of insulin; Z79.84 Long term (current) use of oral hypoglycemic drugs; Z85.038 Personal history of other malignant neoplasm of large intestine
CPT/HCPCS: 36415; 80048; 80053; 81001; 81003; 83690; 84484; 85025; 87086; 93005; 96374; 96375; 96376; 99284

== ENCOUNTER 2022-07-03 13:19 | Outpatient (CLI) | payer OTHER ==
--- NOTE | 2022-07-03 16:32 | XRAY Report ---
PROCEDURE: Shoulder 3 View LT INDICATIONS: LEFT SHOULDER PAIN TECHNIQUE: 3 views of the shoulder were acquired. COMPARISON: None. FINDINGS: Bones: No fractures or dislocations. No suspicious bony lesions. Visualized ribs appear intact. M oderate to severe acromioclavicular degenerative narrowing. Mild to moderate glenohumeral narrowing i s present. Humeral head is mildly high riding. Soft tissues: No suspicious soft tissue calcifications. IMPRESSION: Acromioclavicular and glenohumeral arthritic change. High riding humeral head which can be seen with rotator cuff pathology. Reviewed by: Lissette Agrawal MD on 07/03/2022 4:31 PM PDT Approved by: Lissette Agrawal MD on 07/03/2022 4:31 PM PDT Station ID: [id number]
== END 2022-07-03 13:20 | disposition home or self-care (01) ==
LOC: DI 13:19
PROVIDERS: ATTEND Nurse Practitioner Family
DX: M19.012 Primary osteoarthritis, left shoulder (principal)

== ENCOUNTER 2022-08-22 14:26 | Outpatient (CLI) | payer OTHER ==
[2022-08-22 20:10] LABS: % IRON SATURATION 19 % (20-50); IRON 72 ug/dL (45-182); PSA FREE 0.82 ng/mL (0.16-2.81); TOTAL IRON BINDING CAPACITY 377 ug/dL (250-450); TRANSFERRIN 269 mg/dL (180-329)
[2022-08-22 20:12] LABS: PSA TOTAL 3.038 ng/mL (0.000-2.000)
[2022-08-22 21:42] LABS: ESTIMATED AVERAGE GLUCOSE 137 mg/dL (70-100); HEMOGLOBIN A1c% 6.4 % (4.27-6.07)
[2022-08-24 09:07] LABS: VITAMIN D 25-HYDROXY 37.6 ng/mL (30.0-100.0)
== END 2022-08-22 14:27 | disposition home or self-care (01) ==
LOC: LAB.S 14:26
PROVIDERS: ATTEND Naturopath
DX: E11.9 Type 2 diabetes mellitus without complications (principal); E55.9 Vitamin D deficiency, unspecified; R79.0 Abnormal level of blood mineral; Z86.39 Personal history of other endocrine, nutritional and metabolic disease; R97.20 Elevated prostate specific antigen [PSA]
CPT/HCPCS: 36415; 82306; 82390; 82525; 82728; 83036; 83090; 83540; 84153; 84154; 84466; 84630

== ENCOUNTER 2022-12-24 14:17 | Outpatient (CLI) | payer OTHER ==
[2022-12-24 15:27] LABS: PSA FREE 0.992 ng/mL (0.16-2.81)
[2022-12-24 15:29] LABS: PSA TOTAL 3.479 ng/mL (0.000-2.000)
[2022-12-25 04:09] LABS: VITAMIN D 25-HYDROXY 51.2 ng/mL (30.0-100.0)
== END 2022-12-24 23:59 | disposition home or self-care (01) ==
LOC: LAB 14:17
PROVIDERS: ATTEND Naturopath
DX: E11.9 Type 2 diabetes mellitus without complications (principal); E55.9 Vitamin D deficiency, unspecified; R79.0 Abnormal level of blood mineral; Z86.39 Personal history of other endocrine, nutritional and metabolic disease; R97.20 Elevated prostate specific antigen [PSA]
CPT/HCPCS: 36415; 82306; 82390; 82525; 83090; 84153; 84154; 84630

== ENCOUNTER 2023-07-23 08:09 | Outpatient (CLI) | payer MEDICARE, OTHER ==
[2023-07-23 14:50] LABS: BASOPHILS % (AUTO) 0.7 %; EOSINOPHILS # (AUTO) 0.2 10^3/uL (0.0-0.7); EOSINOPHILS % (AUTO) 3.4 %; HCT - HEMATOCRIT 45.5 % (42.0-52.0); HGB - HEMOGLOBIN 15.3 g/dL (14.0-18.0); LYMPHOCYTES # (AUTO) 1.2 10^3/uL (1.5-3.5); MEAN CORPUSCULAR HEMOGLOBIN 32.1 pg (27.0-31.0); MEAN CORPUSCULAR HGB CONC 33.6 g/dL (32.0-36.0); MEAN CORPUSCULAR VOLUME 95.6 fL (80.0-94.0); MEAN PLATELET VOLUME 10.7 fL (7.4-11.4); MONOCYTES # (AUTO) 0.4 10^3/uL (0.0-1.0); NEUTROPHILS % (AUTO) 67.6 %; PLT - PLATELET COUNT 239 10^3/uL (130-450); RED BLOOD COUNT 4.76 10^6/uL (4.70-6.10); RED CELL DISTRIBUTION WIDTH 13.1 % (12.0-15.0); WHITE BLOOD COUNT 5.9 x10^3/uL (4.8-10.8)
[2023-07-23 15:00] LABS: ESTIMATED AVERAGE GLUCOSE 140 mg/dL (70-100); HEMOGLOBIN A1c% 6.5 % (4.27-6.07)
[2023-07-23 15:37] LABS: PT - PROTHROMBIN TIME 11.2 secs (9.9-12.6)
[2023-07-23 15:49] LABS: CREATININE,URINE 48.7 mg/dL; MICROALBUM/CREATININE RATIO,UR 14.4 ug/mg (<30.0); MICROALBUMIN,URINE 0.7 mg/dL
[2023-07-23 16:07] LABS: ALBUMIN 4.4 g/dL (3.2-5.5); ALBUMIN/GLOBULIN RATIO 2.1 (1.0-2.2); ALKALINE PHOSPHATASE 79 IU/L (42-121); ALT ALANINE AMINOTRANSFERASE 22 IU/L (10-60); AST ASPARTATE AMINOTRANSFERASE 19 IU/L (10-42); BILIRUBIN,TOTAL 1.2 mg/dL (0.2-1.0); BUN - BLOOD UREA NITROGEN 13 mg/dL (6-20); CALCIUM 9.7 mg/dL (8.5-10.3); CARBON DIOXIDE - CO2 30 mmol/L (21-32); CHLORIDE 102 mmol/L (101-111); CHOL/HDL RATIO 2.4 (<5.0); CHOLESTEROL 155 mg/dL; CREATININE 0.9 mg/dL (0.6-1.3); GAMMA GLUTAMYL TRANSPEPTIDASE 11 IU/L (9-64); GFR - MDRD 85 (>89); GLUCOSE 137 mg/dL (74-104); HDL CHOLESTEROL 65 mg/dL; LDL CHOLESTEROL,CALCULATED 72 mg/dL; LDL/HDL RATIO 1.1 (<3.6); POTASSIUM 4.4 mmol/L (3.5-4.5); SODIUM 136 mmol/L (135-145); TOTAL PROTEIN 6.5 g/dL (6.4-8.9); TRIGLYCERIDES 89 mg/dL (48-352); VLDL CHOLESTEROL 18 mg/dL
== END 2023-07-23 08:10 | disposition home or self-care (01) ==
LOC: LAB.S 08:09
PROVIDERS: ATTEND Physician Assistant
DX: Z00.00 Encounter for general adult medical examination without abnormal findings (principal); E80.6 Other disorders of bilirubin metabolism
CPT/HCPCS: 36415; 80053; 80061; 82043; 82570; 82607; 82977; 83036; 83721; 84153; 85025; 85610

== ENCOUNTER 2023-09-04 10:43 | Outpatient (CLI) | payer MEDICARE ==
[2023-09-04 11:19] LABS: CREATININE,URINE 50.1 mg/dL
[2023-09-04 11:21] LABS: % IRON SATURATION 29 % (20-50); ALBUMIN 4.5 g/dL (3.2-5.5); ALBUMIN/GLOBULIN RATIO 1.9 (1.0-2.2); ALKALINE PHOSPHATASE 82 IU/L (42-121); ALT ALANINE AMINOTRANSFERASE 17 IU/L (10-60); AST ASPARTATE AMINOTRANSFERASE 17 IU/L (10-42); BILIRUBIN,TOTAL 1.4 mg/dL (0.2-1.0); BUN - BLOOD UREA NITROGEN 15 mg/dL (6-20); CALCIUM 9.7 mg/dL (8.5-10.3); CARBON DIOXIDE - CO2 26 mmol/L (21-32); CHLORIDE 99 mmol/L (101-111); CHOL/HDL RATIO 2.5 (<5.0); CHOLESTEROL 125 mg/dL; CREATININE 0.9 mg/dL (0.6-1.3); GAMMA GLUTAMYL TRANSPEPTIDASE 10 IU/L (9-64); GFR - MDRD 85 (>89); GLUCOSE 152 mg/dL (74-104); HDL CHOLESTEROL 51 mg/dL; IRON 109 ug/dL (50-212); LDL CHOLESTEROL,CALCULATED 60 mg/dL; LDL/HDL RATIO 1.2 (<3.6); POTASSIUM 4.3 mmol/L (3.5-4.5); SODIUM 133 mmol/L (135-145); TOTAL IRON BINDING CAPACITY 375 ug/dL (250-450); TOTAL PROTEIN 6.9 g/dL (6.4-8.9); TRANSFERRIN 268 mg/dL (203-362); TRIGLYCERIDES 68 mg/dL (48-352); VLDL CHOLESTEROL 14 mg/dL
[2023-09-04 11:22] LABS: MICROALBUMIN,URINE < 0.7 mg/dL
[2023-09-04 11:26] LABS: INR 1.2 (0.8-1.2); PT - PROTHROMBIN TIME 13.2 secs (9.9-12.6)
[2023-09-04 11:35] LABS: BASOPHILS % (AUTO) 0.7 %; EOSINOPHILS # (AUTO) 0.1 10^3/uL (0.0-0.7); EOSINOPHILS % (AUTO) 2.6 %; HCT - HEMATOCRIT 44.7 % (42.0-52.0); LYMPHOCYTES # (AUTO) 1.2 10^3/uL (1.5-3.5); LYMPHOCYTES % (AUTO) 21.6 %; MEAN CORPUSCULAR HEMOGLOBIN 31.3 pg (27.0-31.0); MEAN CORPUSCULAR HGB CONC 33.6 g/dL (32.0-36.0); MEAN CORPUSCULAR VOLUME 93.1 fL (80.0-94.0); MEAN PLATELET VOLUME 10.1 fL (7.4-11.4); MONOCYTES # (AUTO) 0.4 10^3/uL (0.0-1.0); MONOCYTES % (AUTO) 7.9 %; NEUTROPHILS # (AUTO) 3.6 10^3/uL (1.5-6.6); PLT - PLATELET COUNT 288 10^3/uL (130-450); RED CELL DISTRIBUTION WIDTH 12.8 % (12.0-15.0); WHITE BLOOD COUNT 5.4 x10^3/uL (4.8-10.8)
[2023-09-04 11:39] LABS: ESTIMATED AVERAGE GLUCOSE 134 mg/dL (70-100); HEMOGLOBIN A1c% 6.3 % (4.27-6.07)
[2023-09-04 11:41] LABS: FERRITIN 53.4 ng/mL (23.9-336.2)
[2023-09-05 06:09] LABS: VITAMIN D 25-HYDROXY 40.6 ng/mL (30.0-100.0)
== END 2023-09-04 10:44 | disposition home or self-care (01) ==
LOC: LAB 10:43
PROVIDERS: ATTEND Nurse Practitioner Family
DX: I10 Essential (primary) hypertension (principal); E80.6 Other disorders of bilirubin metabolism; E11.9 Type 2 diabetes mellitus without complications; Z79.4 Long term (current) use of insulin; R97.20 Elevated prostate specific antigen [PSA]; E78.5 Hyperlipidemia, unspecified
CPT/HCPCS: 36415; 80053; 80061; 82043; 82306; 82390; 82525; 82570; 82607; 82728; 82977; 83036; 83090; 83540; 83721; 84153; 84466; 84630; 85025; 85610